=== PATIENT | male | born 1955 | race Caucasian/White ===

== ENCOUNTER → 2021-08-01 14:35 | Outpatient (CLI) | payer MEDICARE, SELFPAY ==
--- NOTE | 2021-08-01 14:43 | XR_ITS ---
PROCEDURE: XR CHEST PORTABLE CLINICAL HISTORY: covid COMPARISON: No exams were available for comparison FINDINGS: The cardiomediastinal silhouette and pulmonary vascularity are within normal limits. There are diffuse bilateral ill-defined opacities with some areas of ground-glass opacity in both lung howard as well. Findings are most prominent in the midlung howard laterally. The findings are certainly consistent with Covid19 pneumonia. There is no pleural fluid. IMPRESSION: Diffuse bilateral primarily peripheral ill-defined opacities consistent with Covid19 pneumonia Dictated by: Dr. Carmelo Cade MD 08/01/2021 15:03 Dr. Carmelo Cade MD in [place] 08/01/2021 15:03
== END ==
PROVIDERS: PCP Family Medicine; Visit Provider Family Medicine
DX: J12.82 Pneumonia due to coronavirus disease 2019; R05.9 Cough, unspecified; R53.83 Other fatigue; U07.1 COVID-19
CPT/HCPCS: 71045

== ENCOUNTER 2021-08-04 07:46 | Outpatient (CLI) | payer MEDICARE, SELFPAY ==
[2021-08-04] VITALS (8 sets, daily range): BP systolic 119–160; BP diastolic 72–95; PULSE 84–95; RESP 18–20; TEMP 36.6; O2SAT 92–95
== END 2021-08-04 10:30 | disposition home or self-care (01) ==
PROVIDERS: PCP Family Medicine; Visit Provider Family Medicine
DX: U07.1 COVID-19 (principal); Z23 Encounter for immunization
CPT/HCPCS: 96365

== ENCOUNTER 2023-03-23 19:36 | Emergency (ER) | payer MEDICARE, SELFPAY ==
[2023-03-23 19:39] VITALS: BP 167/90; PULSE 91; RESP 16; TEMP 36.6; O2SAT 97; BMI 32.1
[2023-03-23 19:54] VITALS: BMI 32.1
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
[2023-03-23 20:15] LABS: Basophils # 0.1 K/mm3 (0-0.2); Basophils % 0.8 % (0.1-2.0); Eosinophils # 0.4 K/mm3 (0.0-0.4); Eosinophils % 3.3 % (0.1-12.0); Hematocrit 52.1 % (42.0-52.0); Hemoglobin 16.9 g/dL (14.1-18.0); Lymphocytes # 1.8 K/mm3 (0.7-4.5); Lymphocytes % 16.3 % (10-50); Mean Corpuscular HGB Conc 32.5 g/dL (31.8-35.4); Mean Corpuscular Volume 89.1 fl (80-94); Mean Platelet Volume 8.2 fl (7.4-10.4); Monocytes # 0.6 K/mm3 (0.1-1.0); Neutrophils # 8.4 K/mm3 (1.8-7.8); Neutrophils % 74.5 % (37.0-80.0); Platelet Count 245 K/mm3 (142-424); Red Blood Count 5.85 M/mm3 (4.60-6.20); Red Cell Distribution Width 13.5 % (11.5-17.5); White Blood Count 11.2 K/mm3 (4.8-10.8)
[2023-03-23 20:23] LABS: Chloride 106 mmol/L (98-107); Potassium 4.5 mmoL/L (3.5-5.1); Sodium 143 mmol/L (136-145)
[2023-03-23 20:25] LABS: Blood Urea Nitrogen 16 mg/dl (9-20); Creatinine Clearance Estimated 117 mL/min (50-200); Estimated Glomerular Filt Rate 84 ml/min (>60); GFR (African American) 102 ML/MIN (>60)
[2023-03-23 20:26] LABS: Alanine Aminotransferase 64 U/L (12-78); Albumin Level 4.5 g/dl (3.5-5.0); Alkaline Phosphatase 76 U/L (38-126); Anion Gap 14.5 mEq/L (5-15); Aspartate Amino Transferase 54 U/L (17-59); Bilirubin,Indirect 0.5 mg/dL (0.0-0.9); Bilirubin,Total 0.5 mg/dl (0.2-1.3); Bilirubin,Unconjugated 0.4 mg/dL (0.0-1.1); Calcium 9.4 mg/dl (8.4-10.2); Carbon Dioxide 27 mmol/L (22.0-30.0); Glucose 153 mg/dl (74-100); Total Protein,Serum 7.5 g/dl (6.3-8.2)
[2023-03-23 22:37] VITALS: BP 147/75; PULSE 87; RESP 16; TEMP 36.4; O2SAT 97
[2023-03-23 22:47] VITALS: BMI 32.1
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
== END 2023-03-23 22:37 | disposition home or self-care (01) ==
PROVIDERS: Emergency Provider Emergency Medicine; PCP Family Medicine
DX: S22.41XA Multiple fractures of ribs, right side, initial encounter for closed fracture (principal); S42.021A Displaced fracture of shaft of right clavicle, initial encounter for closed fracture; R10.9 Unspecified abdominal pain; Z87.891 Personal history of nicotine dependence; V86.55XA Driver of 3- or 4- wheeled all-terrain vehicle (ATV) injured in nontraffic accident, initial encounter
CPT/HCPCS: 70450; 71045; 71275; 72125; 72170; 73000; 73030; 74177; 80048; 80076; 85025; 96361; 96374; 96375; 99285; J0131; J2405; Q9967

== ENCOUNTER → 2023-04-20 14:57 | Outpatient (CLI) | payer MEDICARE, SELFPAY ==
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
== END ==
PROVIDERS: PCP Family Medicine; Visit Provider Orthopaedic Surgery
DX: S42.001A Fracture of unspecified part of right clavicle, initial encounter for closed fracture (principal)
CPT/HCPCS: 73000

== ENCOUNTER → 2023-06-01 13:51 | Outpatient (CLI) | payer MEDICARE, SELFPAY ==
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
== END ==
PROVIDERS: PCP Family Medicine; Visit Provider Orthopaedic Surgery
DX: S42.001A Fracture of unspecified part of right clavicle, initial encounter for closed fracture (principal)
CPT/HCPCS: 73000

== ENCOUNTER → 2023-07-21 16:00 | Outpatient (CLI) | payer MEDICARE, SELFPAY ==
[2023-07-21 20:23] LABS: Basophils # 0.1 K/mm3 (0-0.2); Eosinophils # 0.3 K/mm3 (0.0-0.4); Eosinophils % 3.5 % (0.1-12.0); Hematocrit 51.2 % (42.0-52.0); Hemoglobin 16.7 g/dL (14.1-18.0); Lymphocytes # 1.8 K/mm3 (0.7-4.5); Lymphocytes % 19.4 % (10-50); Mean Corpuscular HGB Conc 32.6 g/dL (31.8-35.4); Mean Corpuscular Hemoglobin 29.5 pg (27.0-31.2); Mean Corpuscular Volume 90.3 fl (80-94); Mean Platelet Volume 9.1 fl (7.4-10.4); Monocytes # 0.5 K/mm3 (0.1-1.0); Monocytes % 5.5 % (1.7-9.3); Neutrophils # 6.7 K/mm3 (1.8-7.8); Neutrophils % 70.6 % (37.0-80.0); Platelet Count 252 K/mm3 (142-424); Red Blood Count 5.67 M/mm3 (4.60-6.20); Red Cell Distribution Width 13.3 % (11.5-17.5); White Blood Count 9.5 K/mm3 (4.8-10.8)
[2023-07-21 20:31] LABS: Alanine Aminotransferase 63 U/L (12-78); Albumin Level 4.4 g/dl (3.5-5.0); Albumin/Globulin Ratio 1.4 (1.1-1.8); Alkaline Phosphatase 116 U/L (38-126); Anion Gap 14.8 mEq/L (5-15); Aspartate Amino Transferase 51 U/L (17-59); Bilirubin,Total 0.9 mg/dl (0.2-1.3); Blood Urea Nitrogen 13 mg/dl (9-20); Calcium 9.3 mg/dl (8.4-10.2); Carbon Dioxide 26 mmol/L (22.0-30.0); Chloride 104 mmol/L (98-107); Chol/HDL Ratio 4.4 (1-3.5); Cholesterol 149 mg/dl (140-200); Estimated Glomerular Filt Rate 84 ml/min (>60); GFR (African American) 102 ML/MIN (>60); Globulin 3.1 g/dL (1.3-3.2); Glucose 104 mg/dl (74-100); HDL Cholesterol 34 mg/dl (40-60); Potassium 4.8 mmoL/L (3.5-5.1); Sodium 140 mmol/L (136-145); Total Protein,Serum 7.5 g/dl (6.3-8.2); Triglycerides 235 mg/dl (30-150); VLDL Cholesterol 47 mg/dL (0-40)
[2023-07-21 20:42] LABS: Direct LDL Cholesterol 83.49 mg/dL (100-129)
[2023-07-21 20:56] LABS: Hemoglobin A1C 6.6 % (4.0-6.0)
[2023-07-21 21:01] LABS: Prostate Specific Ag Screen 1.5 ng/ml (0.0-4.0); Thyroid Stimulating Hormone 2.22 uIU/mL (0.465-4.68)
== END ==
PROVIDERS: PCP Family Medicine; Visit Provider Family Medicine
DX: E78.5 Hyperlipidemia, unspecified (principal); E11.9 Type 2 diabetes mellitus without complications; Z12.5 Encounter for screening for malignant neoplasm of prostate; Z79.84 Long term (current) use of oral hypoglycemic drugs; Z79.899 Other long term (current) drug therapy
CPT/HCPCS: 80053; 80061; 83036; 84443; 85025; G0103

== ENCOUNTER 2024-06-19 14:26 | Outpatient (CLI) | payer MEDICARE, SELFPAY ==
[2024-06-19 19:07] LABS: Basophils # 0.1 K/mm3 (0-0.2); Basophils % 1.3 % (0.1-2.0); Eosinophils # 0.3 K/mm3 (0.0-0.4); Eosinophils % 4.4 % (0.1-12.0); Hematocrit 51.3 % (42.0-52.0); Hemoglobin 16.8 g/dL (14.1-18.0); Lymphocytes # 1.6 K/mm3 (0.7-4.5); Mean Corpuscular HGB Conc 32.6 g/dL (31.8-35.4); Mean Corpuscular Hemoglobin 30.6 pg (27.0-31.2); Mean Corpuscular Volume 93.8 fl (80-94); Mean Platelet Volume 8.6 fl (7.4-10.4); Monocytes # 0.4 K/mm3 (0.1-1.0); Monocytes % 6.1 % (1.7-9.3); Neutrophils # 4.6 K/mm3 (1.8-7.8); Neutrophils % 65.3 % (37.0-80.0); Platelet Count 239 K/mm3 (142-424); Red Blood Count 5.47 M/mm3 (4.60-6.20); Red Cell Distribution Width 13.9 % (11.5-17.5)
[2024-06-19 19:37] LABS: Hemoglobin A1C 6.3 % (4.0-6.0)
[2024-06-19 19:49] LABS: Alanine Aminotransferase 45 U/L (12-78); Albumin Level 4.3 g/dl (3.5-5.0); Albumin/Globulin Ratio 1.3 (1.1-1.8); Alkaline Phosphatase 86 U/L (38-126); Anion Gap 13.7 mEq/L (5-15); Aspartate Amino Transferase 33 U/L (17-59); Bilirubin,Total 0.9 mg/dl (0.2-1.3); Blood Urea Nitrogen 14 mg/dl (9-20); Calcium 9.3 mg/dl (8.4-10.2); Carbon Dioxide 24 mmol/L (22.0-30.0); Chloride 108 mmol/L (98-107); Chol/HDL Ratio 3.6 (1-3.5); Cholesterol 165 mg/dl (140-200); Estimated Glomerular Filt Rate 112 ml/min (>60); GFR (African American) 136 ML/MIN (>60); Globulin 3.2 g/dL (1.3-3.2); Glucose 96 mg/dl (74-100); HDL Cholesterol 46 mg/dl (40-60); Potassium 4.7 mmoL/L (3.5-5.1); Sodium 141 mmol/L (136-145); Total Protein,Serum 7.5 g/dl (6.3-8.2); Triglycerides 203 mg/dl (30-150); VLDL Cholesterol 41 mg/dL (0-40)
== END 2024-06-19 23:59 | disposition home or self-care (01) ==
LOC: LAB.DROPOF 06-20 10:26
PROVIDERS: PCP Family Medicine; Visit Provider Family Medicine
DX: E11.9 Type 2 diabetes mellitus without complications (principal); E78.5 Hyperlipidemia, unspecified; Z79.4 Long term (current) use of insulin
CPT/HCPCS: 80053; 80061; 83036; 85025

== ENCOUNTER 2025-07-10 16:00 | Outpatient (CLI) | payer MEDICARE, SELFPAY ==
[2025-07-10 19:31] LABS: Hematocrit 47.5 % (42.0-52.0); Hemoglobin 15.8 g/dL (14.1-18.0); Immature Granulocytes % 0.2 %; Mean Corpuscular HGB Conc 33.3 g/dL (31.8-35.4); Mean Corpuscular Hemoglobin 29.8 pg (27.0-31.2); Mean Corpuscular Volume 89.6 fl (80-94); Nucleated Red Blood Cells % 0 %; Platelet Count 163 K/mm3 (142-424); Red Blood Count 5.30 M/mm3 (4.60-6.20); Red Cell Distribution Width-SD 43.3 fL; White Blood Count 5.9 K/mm3 (4.8-10.8)
[2025-07-10 19:54] LABS: Hemoglobin A1C 5.9 % (4.0-6.0)
[2025-07-10 20:25] LABS: Alanine Aminotransferase 53 U/L (12-78); Albumin Level 4.4 g/dl (3.5-5.0); Albumin/Globulin Ratio 1.6 (1.1-1.8); Alkaline Phosphatase 90 U/L (38-126); Anion Gap 15.1 mEq/L (5-15); Aspartate Amino Transferase 42 U/L (17-59); Bilirubin,Total 1.2 mg/dl (0.2-1.3); Blood Urea Nitrogen 19 mg/dl (9-20); Calcium 9.0 mg/dl (8.4-10.2); Carbon Dioxide 24 mmol/L (22.0-30.0); Chloride 101 mmol/L (98-107); Cholesterol 133 mg/dl (140-200); Creatinine,Serum 0.80 mg/dl (0.66-1.25); Estimated Glomerular Filt Rate 96 ml/min (>60); GFR (African American) 116 ML/MIN (>60); Globulin 2.8 g/dL (1.3-3.2); Glucose 96 mg/dl (74-100); HDL Cholesterol 37 mg/dl (40-60); Potassium 4.1 mmoL/L (3.5-5.1); Sodium 136 mmol/L (136-145); Total Protein,Serum 7.2 g/dl (6.3-8.2); Triglycerides 199 mg/dl (30-150)
[2025-07-10 20:56] LABS: Thyroid Stimulating Hormone 2.02 uIU/mL (0.465-4.68)
[2025-07-10 21:14] LABS: Hepatitis C Ab Qual. W/ RFX NEGATIVE (Negative)
[2025-07-10 21:15] LABS: Vitamin B12 231 pg/mL (239-931)
--- OUTSIDE RECORDS SUMMARY | 2025-07-11 10:37 | XMS_ITS | Clinical Summary ---
Author Organization [facility] Address [address] [place] [address] Phone Care Team Providers Care Regional Administrative Assistant Name Role Phone Jeff Carrasco MD Primary Care Provider [phone] Allergies No known active allergies Medications acetaminophen Oral tablet Take by mouth every 4 hours as needed for Pain. Active UNKNOWN TO PATIENT Takes a cholesterol medicine twice a day Active Social History Tobacco Use Types Packs/Day Years Used Date Smoking Tobacco: Former Smokeless Tobacco: Never Alcohol Use Standard Drinks/Week Comments No 0 (1 standard drink = 0.6 oz pur e alcohol) Sex and Gender Information Value Date Recorded Sex Assigned at Not on file Legal Sex Male 1:57 AM EDT Gender Identity Not on file Sexual Orientation Not on file Obstetrics History Last Filed Vital Signs Vital Sign Reading Time Taken Comments Blood Pressure 159/80 07/29/2021 12:09 PM EDT Pulse 100 07/29/2021 12:09 PM EDT Temperature 36.6 C (97.9 F) 07/29/2021 10:10 AM EDT Respiratory Rate 17 07/29/2021 12:09 PM EDT Oxygen Saturation 94% 07/29/2021 12:09 PM EDT Inhaled Oxygen Concentration - - Weight 122.5 kg (270 lb) 11/29/2013 8:01 PM EST Height 190.5 cm (6' 3 ) 11/29/2013 8:01 PM EST Body Mass Index 33.75 11/29/2013 8:01 PM EST Plan of Treatment Health Maintenance Due Date Last Done Comments Wellness Exam Medicare 1958 Hepatitis C Screening 1974 DTaP/TDaP/Td (1 - Tdap) 1975 Cologuard 2001 Colon Cancer Screening 2001 Colonoscopy 2001 FIT 2001 Sigmoidoscopy 2001 Virtual Colonography 2001 Zoster (1 of 2) 2006 Pneumococcal Vaccine 50+ (2 of 2 - PCV) 09/02/2019 09/02/2018 COVID-19 Vaccine (1 - 2023-2 5 season) 2025 Influenza Vaccine (#1) 2025 9, 09/02/2018 Hepatitis B Vaccine Aged Out No longe r eligible based on patient's age to complete this topic Meningococcal B Vaccine Aged Out No l onger eligible based on patient's age to complete this topic Insurance BRYAN BERNAL MR BRYAN BERNAL MR Care Teams Regional Administrative Assistant Relationship Specialty Start Date End Date Jeff Carrasco MD PCP - General Family Medicine 10/21/13
== END 2025-07-10 23:59 ==
LOC: LAB.DROPOF 07-11 10:33
PROVIDERS: PCP Nurse Practitioner; Visit Provider Nurse Practitioner
DX: E78.5 Hyperlipidemia, unspecified (principal); E11.9 Type 2 diabetes mellitus without complications; Z12.5 Encounter for screening for malignant neoplasm of prostate; I10 Essential (primary) hypertension; Z11.59 Encounter for screening for other viral diseases
CPT/HCPCS: 80053; 80061; 82043; 82570; 82607; 83036; 84443; 85025; 86803; 87389; G0103

== ENCOUNTER 2025-08-01 12:48 | Emergency (ER) | payer MEDICARE, SELFPAY ==
[2025-08-01 12:52] VITALS: BP 202/99; PULSE 85; RESP 18; TEMP 36.7; O2SAT 99
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
--- NOTE | 2025-08-01 13:04 | ED_ITS ---
<Statement entered by Carlito Joseph DO - 08/02/25 00:33> I was consulted by the PAYAM, and we discussed the complexity of problems being addressed. I approved the treatment and management plan for this patient's care in the emergency department, thus performing a substantive portion of the medical decision making. This patient had a very concerning history of a fall with a notable thoracic spine fracture with associated spinal hemorrhage. We thoroughly discussed with this patient the severity of his underlying condition. We are awaiting for the [facility] to call us back so we could transfer him down there for trauma evaluation. The patient did not want to stay in the hospital and did not want to proceed with transfer. We had a long conversation with the patient at the bedside and explained risks and benefits of leaving, including symptomatic progression to permanent paralysis and even potential . Patient knowledge understanding of risks and benefits and still wished to leave the hospital. We did send him with a prescription for oxycodone for symptomatic control. He understands that he can return to the emergency department anytime to pursue further treatment. Carlito Joseph DO Discharge Plan Disposition Patient Disposition: Left Against Medical Advice Condition: Fair Prescriptions Prescriptions: New oxycodone 5 mg tablet 5 mg PO Q8H PRN (Reason: pain) Qty: 12 0RF methocarbamol 750 mg tablet 750 mg PO HS Qty: 14 0RF No Action atorvastatin 40 mg tablet 40 mg PO DAILY Qty: 90 3RF Jardiance 25 mg tablet 25 mg PO DAILY Qty: 90 3RF glimepiride 2 mg tablet See Rx Instructions .ROUTE .COMPLEX Qty: 90 3RF Dose Instruction: TAKE 1 TABLET DAILY FOR 90 DAYS. Rx Instructions: TAKE 1 TABLET DAILY FOR 90 DAYS. losartan 100 mg tablet 100 mg PO DAILY Qty: 90 3RF metformin 1,000 mg tablet 1,000 mg PO BID Qty: 180 3RF albuterol sulfate 90 mcg/actuation HFA aerosol inhaler 2 puff inhalation QID PRN (Reason: shortness of breath or wheezing) Qty: 8.5 10RF (DME) Blood Glucose Test Strip See Rx Instructions .Route Qty: 100 5RF Rx Instructions: Use to check blood sugar twice daily and as needed (DME) blood-glucose meter [Blood Glucose Monitoring] Kit See Rx Instructions .Route Qty: 1 0RF Rx Instructions: Use to check blood sugar twice daily and as needed alcohol swabs [Alcohol Prep Pads] Pads, Medicated 1 pad topical BID Qty: 100 5RF (DME) lancets 32 gauge misc See Rx Instructions .Route Qty: 100 5RF Rx Instructions: Use to check blood sugar twice daily and as needed cyanocobalamin (vitamin B-12) 1,000 mcg tablet 1,000 mcg PO DAILY Qty: 90 1RF Referrals Follow up/Referrals: Suhail Mcarthur MD [Referring, Neurosurgery] - See instructions Jeff Carrasco MD [Primary Care Provider, Family Practice] - See instructions Clinical Impressions Clinical Impression: Fracture of T9 vertebra Print Language Print Language: Macedonian Discharge ED Provider: Carlito Joseph General Adult HPI General Chief complaint: PAIN Stated complaint: AO-07/29- Fall, back pain Time Seen by Provider: 08/01/25 12:55 Mode of Arrival: Ambulatory Source of Information: Patient Description of Symptoms (Recalled from ER Triage Doc. by RN): Pt states he was moving pallets at work on wednesday and fell backwards onto his back. Pt denies LOC/BT History of Present Illness HPI narrative: 70-year-old male presents the emergency department with a lower back/mid back injury, that occurred around 2 or 3 days ago (Wednesday night),. When the patient was moving pallets , he states he slipped, fell backwards , striking the head, landed on his mid back and low back, he has been utilizing Tylenol and ibuprofen with little no relief of symptomatology, thus prompted emergency department visit. Patient denies any LOC, denies any presyncopal or syncopal event, denies any fever chills chest pain shortness of breath nausea vomiting constipation diarrhea, no upper or lower extremity weakness, no numbness or tingling, no saddle anesthesia, no urinary bladder or bowel dysfunction, no true radicular type symptomatology. Patient is a non-smoker, admits to occasional alcohol use, denies any drug use other past medical history is consistent with hypertension, hyperlipidemia, vitamin B12 deficiency, T2DM. Initial triage vitals notable for hypertensive state around systolic 200, however, improved to around 177 systolic upon my examination of the patient. Please note that above description of symptoms, in this electronic medical recor d under categorization of recalled from ER triage doctor by RN are reflective of an initial nursing assessment, however, is not reflective of my full history and physical exam that was personally taken and clarified. Consequentially, this preceding description of symptoms, which may include the patient's categorized chief complaint in the EMR, do not reflect my personal clinical impression, and the ultimate description of history of present illness and patient stated complaints should be deferred to this section of the note. Unless stated otherwise or congruent with this section of the note, additional signs, symptoms, or incongruence should be interpreted as inaccurate with my clinical impression. Onset (ago): day(s) Related Data Previous Rx's ?Medication ?Instructions ?Recorded albuterol sulfate 90 mcg/actuation 2 puff inhalation Q ID PRN 09/20/23 aerosol inhaler shortness of breath or wheez ing #8.5 grams alcohol swabs (Alcohol Prep Pads) 1 pad topical BID #1 00 05/14/25 blood sugar diagnostic (Blood #100 05/14/25 Glucose Test strips) blood-glucose meter (Blood Glucose #1 05/14/25 Monitoring kit) lancets 32 gauge #100 ea 05/14/25 atorvastatin 40 mg tablet 40 mg PO DAILY #90 tabs 06/25 04/18 empagliflozin 25 mg tablet 25 mg PO DAILY #90 tabs (Jardiance) glimepiride 2 mg tablet See Rx Instructions .Route 0 07/10/25 .COMPLEX #90 tabs losartan 100 mg tablet 100 mg PO DAILY #90 tabs metformin 1,000 mg tablet 1,000 mg PO BID #180 tabs cyanocobalamin (vitamin B-12) 1,000 mcg PO DAILY #90 t abs 07/11/25 1,000 mcg tablet methocarbamol 750 mg tablet 750 mg PO HS #14 tabs 100 06/18 oxycodone 5 mg tablet 5 mg PO Q8H PRN pain #12 tab s 08/01/25 Allergies Allergy/AdvReac Type Severity Reaction Status Date / Time No Known Allergies Allergy Verified 07/10/25 14:33 [facility] Disclaimer: The information contained in this section may have been updated after the patient was seen, as this information can be updated by other users. Medical History (Updated 08/01/25 @ 18:09 by JACK Rivera) Vitamin B12 deficiency Negative colorectal cancer screening using DNA-based stool test (~09/2024) Personal history of smoking Essential hypertension History of colon polyps Closed right clavicular fracture Clavicle fracture Fracture, ribs Hyperlipidemia Erectile dysfunction Diabetes mellitus Surgical History (Updated 07/10/25 @ 14:40 by Amairani Alcazar MA) No history of previous surgery Social History Smoking Status: Never smoker alcohol intake: never current occupational status: retired Travel in the last 8 weeks?: None Have you lived/traveled outside [place] in past 30 days?: No Contact w/someone who lives/traveled outside US past 30 days?: No Exposure to someone with infectious disease in past 14 days?: No Do you have a fever (greater than 100.4 F or 38 C)?: No Have you tested positive for COVID-19?: No Exposed to someone with COVID-19 in past 14 days?: No Do you have a sore throat?: No Do you have a cough?: No Do you have any weakness?: No Do you have any diarrhea?: No Are you experiencing any unusual bleeding?: No Do you have any muscle aches/pain?: Yes Do you have any abdominal pain?: No Are you experiencing loss of taste or smell?: No Other Medical History Have you received the Pneumonia Vaccine: Yes ROS Obtained: Yes All systems reviewed & no additional complaints except as documented Physical Exam General General appearance: alert and in no apparent distress Head Head exam: atraumatic and normocephalic Eye Eye exam: Present PERRL and EOMI ENT ENT exam: Present mucous membranes moist Neck Neck exam: Present normal inspection Chest Chest inspection: Present normal inspection and symmetric chest wall rise Respiratory Respiratory exam: Present normal lung sounds bilaterally; Absent respiratory distress Cardiovascular Cardiovascular exam: Present regular rate and normal rhythm Abdominal Exam Abdominal exam: Present soft; Absent tenderness Extremities Exam Extremities exam: Present normal inspection Back Exam Back exam: Present normal inspection, full ROM, tenderness and paraspinal tenderness; Absent vertebral tenderness Comment: Mild paraspinal tenderness to the thoracic spine, lower lumbar spine, no step- offs or deformities, no spinal tenderness palpation to the C-spine T-spine or L- spine, no paraspinal tenderness palpation C-spine Neurological Exam Neurological exam: Present alert, oriented X3 and other (5 out of 5 strength in bilateral lower and upper extremities, no gross sensation deficit.) Psychiatric Psychiatric exam: Present normal affect Skin Skin exam: Present warm and dry Medical Decision Making Medical Records Medical records reviewed: Yes I reviewed the patient's medical records. Screening: Per USPSTF and CDC recommendations, given the prevalence of disease in our region, it is our hospital?s policy to screen for HIV and viral Hepatitis for all patients aged 18 and over and those with ongoing risk factors. Alex Inquiry Pt receiving controlled substance: No Alex was queried for this patient: No Vital Signs: 08/01/25 12:52 08/01/25 13:35 Temperature 98.1 F Temperature Source Oral Pulse Rate 89 Pulse Rate [Right] 85 Respiratory Rate 18 18 Blood Pressure 170/104 H Blood Pressure [Right Arm] 202/99 H Blood Pressure Mean [Right Arm] 133 Blood Pressure Source Automatic Cuff Blood Pressure Source [Right Arm] Automatic Cuff Blood Pressure Position Sitting Blood Pressure Position [Right Arm] Sitting 02 Sat by Pulse Oximetry 99 97 Oxygen Delivery Method Room Air Orders (Tests/Meds): ED MEDICATIONS Discontinued Medications Generic Name Dose Route Start Last Admin Trade Name Freq PRN Reason Stop Dose Admin Hydrocodone Bitart/Acetaminophen 1 tab 08/01/25 16:29 08/01/25 16:40 Hydrocodone/Apap 5/325 Mg Tablet PO 08/01/25 16:30 1 tab ONCE ONE Administration Lidocaine 1 each 08/01/25 13:03 08/01/25 13:28 Lidocaine 5% Transdermal Patch TD 08/01/25 13:04 1 each ONCE ONE Administration Methocarbamol 750 mg 08/01/25 13:03 08/01/25 13:28 Methocarbamol 500mg Tablet PO 08/01/25 13:04 750 mg ONCE ONE Administration ORDERS Category Date Time Status CT cervical spine wo con Stat Cat Scan 08/01/25 13:[address] head/brain wo con Stat Cat Scan 08/01/25 13:[address] lumbar spine wo con Stat Cat Scan 08/01/25 13:[address] thoracic spine wo con Stat Cat Scan 08/01/25 13:02 Completed Medical Decision Narrative: 70-year-old male presents the emergency department with a fall and mid back and low back injury that occurred 2 to 3 days ago, differential diagnose to include but not limited to, acute lumbar sacral strain, thoracic myofascial strain, T- spine fracture, L-spine fracture, degenerative disc disease, cervicalgia, C- spine fracture, closed head injury, acute SDH, postcode syndrome, traumatic SAH among others. I discussed this patient's case with the attending physician Dr. Dobson, as well as on discharge I discussed this patient's case with the attending physician Dr. Joseph Will obtain CT head, C, T, L-spine noncontrasted CT scans for further evaluation/characterization. Will give 750 mg p.o. methocarbamol and Lidoderm patch for symptomatic relief. I reviewed the patient's CT cervical spine without contrast the corresponding radiologic report, there is degenerative disc disease without acute osseous abnormality of the cervical spine, I reviewed the patient's CT head without contrast on the corresponding radiologic report, no acute intracranial abnormality. I reviewed the patient's CT thoracic spine without contrast along the corresponding radiologic report, fractures of the inferior anterior aspect of T9 with involvement of bridging osteophytes at this level, associated widening of the T9-T10 space anterior likely representing paraspinal hemorrhage, recommend MRI for further evaluation, I reviewed the patient's CT lumbar spine without contrast along the corresponding radiologic report, exam limited by patient positioning no acute fracture identified. Patient's notified me at approximately 4:28 PM the patient is having some worsening pain, will give 5 mg p.o. [place] for pain. I discussed this patient's case with Eve Galvan APRN at [facility], unfortunately images have not yet been available for direct interrogation, will attempt to PowerShare images again [facility] for spine surgery consultation/evaluation. I had a long discussion with patient and family at the bedside as patient and family become quite agitated due to their long emergency department wait. Still have not yet been able to consult with spine surgery, which I do think is imperative for the patient's care. Patient and at the bedside both GCS of 15, alert oriented, both verbalized understanding about the patient's condition, patient and family like to leave AGAINST MEDICAL ADVICE instead of waiting for spine surgeon consultation. Patient and family once again and acknowledges all risk including poor neurological outcome to include paralysis among others. Patient was given strict ED return precautions. Patient and family voiced understanding once again about the decision to leave AGAINST MEDICAL ADVICE. Will call in some adequate analgesia per attending physician for T9 traumatic fracture, as well as simply milligram p.o. methocarbamol for pain. [facility] called me back Dr. Brewer transfer physician at approximately 6:10 PM, unfortunately had not yet been able to see the patient's images. I discussed with them that the patient left AGAINST MEDICAL ADVICE. Critical Care Critical Care Time Critical Care Time: No
--- NOTE | 2025-08-01 13:13 | PC.NURSE ---
Pt to CT scanner
[2025-08-01] MEDS: LIDOCAINE 5% TRANSDERMAL PATCH 1 EACH TD (13:28)
[2025-08-01] MEDS: METHOCARBAMOL 500MG TABLET 750 MG PO (13:28)
[2025-08-01 13:35] VITALS: BP 170/104; PULSE 89; RESP 18; O2SAT 97
--- NOTE | 2025-08-01 15:11 | PC.NURSE ---
calling [facility] at this time.
[2025-08-01] MEDS: HYDROCODONE/APAP 5/325 MG TABLET 1 TAB PO (16:40)
--- NOTE | 2025-08-01 16:57 | PC.NURSE ---
Called [facility] per JACK Nails to check on the call back for this pt. [facility] advised there were two calls ahead of and would call us back
--- NOTE | 2025-08-01 18:01 | PC.NURSE ---
[facility]WIND[facility] KINNEY AT BEDSIDE TO UPDATE PT
[2025-08-01 18:10] VITALS: BP 162/100; PULSE 85; RESP 18; TEMP 36.8; O2SAT 98
== END 2025-08-01 18:10 | disposition left against medical advice (07) ==
PROVIDERS: Emergency Provider Student in an Organized Health Care Education/Training Program; PCP Family Medicine
DX: S22.078A Other fracture of T9-T10 vertebra, initial encounter for closed fracture (principal); M54.59 Other low back pain; W17.89XA Other fall from one level to another, initial encounter
CPT/HCPCS: 70450; 72125; 72128; 72131; 99283; 99285